=== PATIENT | female | born 1960 ===

== ENCOUNTER → 2017-02-24 | Day surgery (SDC) | payer BC ==
[2017-02-24] VITALS (12 sets, daily range): BP systolic 91–127; BP diastolic 62–82
[~2017-02-24] VITALS: Ht 157.5 cm; Wt 56.7 kg
[~2017-02-24] MED LIST: Bacitracin 50000 Units Vial ONE; Bupivacaine 0.25% Inj 30ml INJ ONE; Bupivacaine w/Epi 0.25% 30ml Vial INJ ONE; D5 1/2NS 1,000 ML IV SCH; DiphenhydrAMINE 50mg/ml Inj IVP PRN; HYDROmorphone 1mg/ml Carpuject SUBQ PRN; Hydromorphone 0.5mg/0.5ml inj IVP PRN; Ketorolac 30mg Inj IV PRN; LR 1000ml 1,000 ML IVLG SCH; Metoclopramide 10mg/2ml Inj IVP PRN; NKM; Norco 5mg/325mg tab ORAL PRN; Ropivacaine 5mg/ml Vial 20ml INJ ONE; Tylenol #3 tab (300mg/30mg) ORAL PRN; ceFAZolin 1gm in D5W 55ml IVP ONE; celeBREX 200mg Cap **SURGERY PATIENTS ONLY ORAL ONE; fentaNYL 100 mcg/2 mL IV PRN; oxyCONTIN 20mg tab ORAL ONE
--- NOTE | 2017-02-24 08:15 | Pre-Procedure Note/Attestation ---
Pre-Procedure Note/Attestation Complete Prior to Procedure Planned Procedure: left Procedure Narrative: left ankle orif Indications for Procedure Pre-Operative Diagnosis: left ankle fracture Attestation I attest that I discussed the nature of the procedure; its benefits; risks and complications; and alternatives (and the risks and benefits of such alternatives ), prior to the procedure, with the patient (or the patient's legal senior outside sales representative). I attest that, if there was a reasonable possibility of needing a blood transfusion, the patient (or the patient's legal senior outside sales representative) was given the [facility] standardized written summary, pursuant to the Bertin Rosa Blood Safety Act ([place] Health and Safety Code # 1645, as amended). I attest that I re-evaluated the patient just prior to the surgery and that there has been no change in the patient's H&P, except as documented below: SARAH BARRIOS Feb 24, 2017 08:15
--- NOTE | 2017-02-24 08:15 | Operative Note - PDOC ---
Operative Note Operative Note Pre-op Diagnosis: left ankle fracture Procedure: left ankle orif, open repair syndesmotic ligament Post-op Diagnosis: same as pre-op plus Operative Findings: consistent w/pre-op dx studies Anesthesia: general Specimen: none Complications: none Condition: stable Estimated Blood Loss: minimal Implant(s) used?: Yes SARAH BARRIOS Feb 24, 2017 08:15
--- NOTE | 2017-02-24 12:49 | Anethesia Preoperative Eval ---
Anesthesia Pre-op PMH/ROS General Date of Evaluation: Feb 24, 2017 Time of Evaluation: 11:50 Anesthesiologist: Kenyon ASA Score: ASA 2 Mallampati Score Class I : Soft palate, uvula, fauces, pillars visible Class II: Soft palate, uvula, fauces visible Class III: Soft palate, base of uvula visible Class IV: Only hard plate visible Mallampati Classification: Class II Surgeon: Mustafa Diagnosis: L Ankle Fx. Surgical Procedure: ORIF of L ankle Fx Anesthesia History: none Family History: no anesthesia problems Allergies: Coded Allergies: No Known Allergies (Unverified , 02/23/17) Medications: see eMAR Past Medical History Cardiovascular: Denies: CAD, HTN, [place], arrhythmia, other, valve dz Pulmonary: Denies: COPD, ALYSSA, asthma, other Gastrointestinal/Genitourinary: Reports: GERD - mild, Denies: CRI, ESRD, other Neurologic/Psychiatric: Denies: CVA, TIA, dementia, depression/anxiety, other Endocrine: Denies: DM, hypothyroidism, other, steroids HEENT: Denies: [place] (L), [place] (R), cataract (L), cataract (R), glaucoma, other Hematology/Immune: Denies: DVT, anemia, bleeding disorder, other Musculoskeletal/Integumentary: Denies: DDD, DJD, OA, RA, edema, other PMH Narrative: as above PSxH Narrative: T&A Anesthesia Pre-op Phys. Exam Physician Exam Last Vital Signs Date Time Temp Pulse Resp B/P Pulse Ox O2 Delivery O2 Flow Rate FiO2 02/24/17 10:19 97.4 18 127/82 100 Room Air Constitutional: NAD Neurologic: CN 2-12 intact Cardiovascular: RRR, no M/R/G Respiratory: CTA Gastrointestinal: S/NT/ND Airway Exam Mallampati Score: Class II MO: full Neck: flexible ROM: full Teeth: intact Dentures: no lower, no upper Anesthesia Pre-op A/P Labs see chart Studies Pre-op Studies: EKG - NSR Risk Assessment & Plan Assessment: ASA 2 Plan: GA with LMA L popliteal fossa block for post op analgesia surgeon request Status Change Before Surgery: No Pre-Antibiotics Drug: Ancef 1gr. Given Within 1 Hr of Incision: Yes Time Given: 12:25 VINH JOHN M.D. Feb 24, 2017 12:49
--- NOTE | 2017-02-24 15:16 | Immediate Post-Op Evaluation ---
Immediate Post-Op Evalulation Immediate Post-Op Evalulation Procedure: L ankle fracture ORIF Date of Evaluation: Feb 24, 2017 Time of Evaluation: 13:30 IV Fluids: 800 Blood Products: none Estimated Blood Loss: min Urinary Output: none Blood Pressure Systolic: 108 Blood Pressure Diastolic: 56 Pulse Rate: 72 Respiratory Rate: 20 O2 Sat by Pulse Oximetry: 98 Temperature (Fahrenheit): 97.8 Pain Score (1-10): 2 Nausea: No Vomiting: No Patient Status: reacts, patent, none Hydration Status: adequate VINH JOHN M.D. Feb 24, 2017 15:16
--- NOTE | 2017-02-24 15:31 | 48 Hour Post Anesthesia Eval ---
Post Anesthesia Evaluation Procedure: L ankle fracture ORIF Date of Evaluation: Feb 24, 2017 Time of Evaluation: 15:30 Blood Pressure Systolic: 115 0: 62 Pulse Rate: 64 Respiratory Rate: 20 Temperature (Fahrenheit): 97.6 O2 Sat by Pulse Oximetry: 98 Airway: patent Nausea: No Vomiting: No Pain Intensity: 1 Hydration Status: adequate Cardiopulmonary Status: stable Mental Status/LOC: patient returned to baseline Follow-up Care/Observations: n/a Post-Anesthesia Complications: none Follow-up care needed: ready to discharge VINH JOHN M.D. Feb 24, 2017 15:31
--- NOTE | 2017-02-24 22:08 | Operative Note - Dictated ---
DATE OF OPERATION: 02/24/2017 PREOPERATIVE DIAGNOSIS: Left ankle ligamentous C4 ankle fracture dislocation. POSTOPERATIVE DIAGNOSES: 1. Left ankle ligamentous C4 ankle fracture dislocation. 2. Fibula malunion. PROCEDURE PERFORMED: 1. Open reduction and internal fixation left bimalleolar ankle fracture dislocation. 2. Fibular osteotomy. 3. Application of posterior splint. SURGEON: Bhaskar Mustafa M.D. ANESTHESIA: Obtained with general. INDICATION FOR PROCEDURE: The patient is a pleasant female, who has had a mechanical fall. She was diagnosed with a lateral fibular fracture while in the medial clear space indicative of operative fixation. Risks, limitations, and potential complications of the procedure were discussed in detail. All questions were addressed. DESCRIPTION OF PROCEDURE: An informed consent was obtained. The patient was brought to the operating room and the patient was placed under general anesthetic placed. The patient was then carefully placed in the supine position. The left leg Esmarch was used to exsanguinate the extremity. Lateral skin incision was then made. The fibula was identified and the fracture was identified. Given that was three weeks old, the fracture site was noted to be displaced. Almond and curettes were then used to perform osteotomy to the fracture site. Once the osteotomy fibula was performed. The fracture site was curetted of any callus. The reduction was performed. Visually, the reduction was anatomic. A lag screw was then placed. A periarticular locking plate was then selected. Multiple screws were then placed. Once that was done, the wound was copiously irrigated. The skin was closed. Once the fibula was reduced, external rotation stress test was performed. The medial clear space distally intact. At this point, a formal reduction of the syndesmosis was not required. At this point, the 2-0 Vicryl, 3-0 Vicryl, and 3-0 Monocryl sutures were placed along with a posterior splint. The patient was then taken to the recovery room with stable vital signs. ESTIMATED BLOOD LOSS: Minimal. COMPLICATIONS: None. SPECIMENS: None. IMPLANTS: Include [place] lateral fibula plate. Bhaskar Mustafa M.D. DR: CLAIRE JOB#: [id number] CC: RABIA
--- NOTE | 2017-02-27 09:07 | Diagnostic Imaging Report ---
Indications: Status post open reduction and internal fixation of left ankle fracture Technique: Portable AP and lateral views of the left ankle Findings: Comparison: None Fixation plate and anchoring screws bridge fracture of the distal fibula, anatomically aligned. There is a mildly displaced, mildly comminuted longitudinal fracture through the posterior malleolus of the distal tibia. Plaster splint in place. IMPRESSION: Reduction internal fixation distal left fibular fracture Mildly displaced tibial posterior malleolar fracture
--- NOTE | 2017-02-27 11:03 | Diagnostic Imaging Report ---
Indication: FX, intraoperative Technique: Digital intraoperative images Comparison: None Findings: Intraoperative images document repair of distal fibular fracture using lateral sideplate and screws Impression: Intraoperative images, as described
== END | disposition home or self-care (01) ==
LOC: SUR 08:57
DX: S82.842A Displaced bimalleolar fracture of left lower leg, initial encounter for closed fracture (principal); S82.62XA Displaced fracture of lateral malleolus of left fibula, initial encounter for closed fracture; X58.XXXA Exposure to other specified factors, initial encounter; Y92.89 Other specified places as the place of occurrence of the external cause; Y99.9 Unspecified external cause status
CPT/HCPCS: 27707; 27814; 73600; 76000; C1713; J2795; J3490; 94003; 94150